=== PATIENT | male | born 1990 | race Caucasian/White ===

== ENCOUNTER 2016-08-14 16:20 | Emergency (ER) | payer OTHER ==
[~2016-08-14] VITALS: Ht 172.7 cm; Wt 91.4 kg
[2016-08-14 16:43] VITALS: TEMP 36.7; Ht 172.7 cm; Wt 91.4 kg
[2016-08-14 17:31] LABS: BASO % 0.4 %; BASO ABS # 0.04 K/uL (0-0.2); COMPLETE YES; EOS % 0.9 %; HEMATOCRIT 46.4 % (42-52); IG% 0.2 %; LYMPH % 28.2 %; LYMPH ABS # 2.63 K/uL (1.2-3.4); MEAN CORPUSCULAR HEMOGLOBIN 31.2 pg (25-34); MEAN CORPUSCULAR HGB CONC 34.3 g/dl (32-36); MEAN PLATELET VOLUME 10.1 fL (7.4-10.4); MONO % 9.9 %; NEUT % 60.4 %; PLATELET COUNT 238 K/uL (130-400); WHITE BLOOD COUNT 9.34 K/uL (4.8-10.8)
[2016-08-14 17:43] LABS: POINT OF CARE TROPONIN I < 0.030 ng/ml (0-0.045)
[2016-08-14 17:48] LABS: BUN/CREATININE RATIO 6.3 (10-20); CALCIUM 8.9 mg/dl (8.5-10.1); CREATININE 1.4 mg/dl (0.60-1.40); POTASSIUM 3.3 mmol/L (3.5-5.1)
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
[2016-08-14] MEDS ORDERED: POTASSIUM CHLORIDE 10 MEQ TABCR PO STA (18:13)
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
[2016-08-14 19:23] VITALS: BP 124/75; PULSE 70; O2SAT 98
== END 2016-08-14 19:24 | disposition home or self-care (01) ==
LOC: C.EDB 16:23 → C.EDD 19:24
DX: S09.90XA Unspecified injury of head, initial encounter (principal); E87.6 Hypokalemia; R79.89 Other specified abnormal findings of blood chemistry; W16.122A Fall into natural body of water striking bottom causing other injury, initial encounter; W22.8XXA Striking against or struck by other objects, initial encounter; Z87.828 Personal history of other (healed) physical injury and trauma; Z83.3 Family history of diabetes mellitus

== ENCOUNTER 2016-12-06 17:26 | Emergency (ER) | payer OTHER ==
[~2016-12-06] VITALS: Ht 172.7 cm; Wt 91.9 kg
[2016-12-06 17:34] VITALS: TEMP 36.6; Ht 172.7 cm; Wt 91.9 kg
[2016-12-06] MEDS ORDERED: SODIUM CHLORIDE 0.9% 1000ML 1,000 ML IV STA (17:42)
--- NOTE | 2016-12-06 17:59 | DIAGNOSTIC IMAGING REPORT ---
CHEST ONE VIEW PORTABLE CLINICAL HISTORY: ABDOMINAL PAIN/GI pain COMPARISON STUDY: 08/14/2016 FINDINGS: Moderate cardiomegaly. Diaphragms smooth. Lungs are clear. IMPRESSION: Moderate cardiac megaly. Otherwise negative study. The above report was generated using voice recognition software. It may contain grammatical, syntax or spelling errors. Electronically signed by: Nima Nieves M.D. 12/06/2016 5:57 PM Dictated Date/Time: 12/06/2016 5:57 PM
[2016-12-06 18:09] LABS: BASO % 0.5 %; BASO ABS # 0.04 K/uL (0-0.2); COMPLETE YES; EOS % 1.7 %; HEMATOCRIT 45.3 % (42-52); IG% 0.1 %; LYMPH % 32.4 %; LYMPH ABS # 2.64 K/uL (1.2-3.4); MEAN CELL VOLUME 92.3 fL (80-100); MEAN CORPUSCULAR HGB CONC 35.8 g/dl (32-36); MEAN PLATELET VOLUME 10.2 fL (7.4-10.4); MONO % 10.8 %; NEUT % 54.5 %; PLATELET COUNT 224 K/uL (130-400); RED BLOOD COUNT 4.91 M/uL (4.7-6.1); WHITE BLOOD COUNT 8.14 K/uL (4.8-10.8)
--- NOTE | 2016-12-06 18:19 | DIAGNOSTIC IMAGING REPORT ---
ABD/PELVIS NO IV OR ORAL CONT CT DOSE: 525.15 mGy.cm HISTORY: Pain rt sided flank/abd pain TECHNIQUE: Multiaxial CT images of the abdomen and pelvis were performed without contrast. A dose lowering technique was utilized adhering to the principles of ALARA. COMPARISON STUDY: None. FINDINGS: The lung bases are clear. The unenhanced liver, spleen, gallbladder, pancreas, kidneys, and adrenal glands are within normal limits. No bowel wall thickening or obstruction. The pelvic organs are unremarkable. No suspicious lytic or blastic osseous lesions. IMPRESSION: No significant abnormality identified within the abdomen or pelvis. Normal appendix The above report was generated using voice recognition software. It may contain grammatical, syntax or spelling errors. Electronically signed by: Nima Nieves M.D. 12/06/2016 6:18 PM Dictated Date/Time: 12/06/2016 6:15 PM
[2016-12-06 18:25] LABS: URINE APPEARANCE CLEAR (CLEAR); URINE BILIRUBIN NEG (NEG); URINE COLOR YELLOW; URINE EPITHELIAL CELL AUTO 0-5 /lpf (0-5); URINE NITRITE NEG (NEG); URINE SPECIFIC GRAVITY 1.028 (1.000-1.030); UROBILINOGEN NEG (NEG); ZZUR CULT IF INDIC CLEAN CATCH NO
[2016-12-06 18:26] LABS: ALT/SGPT 33 U/L (12-78); BLOOD UREA NITROGEN 16 mg/dl (7-18); CALCIUM 8.8 mg/dl (8.5-10.1); CARBON DIOXIDE 25 mmol/L (21-32); CHLORIDE 105 mmol/L (98-107); CREATININE 1.49 mg/dl (0.60-1.40); GLUCOSE 94 mg/dl (70-99); POTASSIUM 3.8 mmol/L (3.5-5.1); SODIUM 137 mmol/L (136-145)
[2016-12-06 18:28] LABS: ALKALINE PHOSPHATASE 85 U/L (45-117); AST/SGOT 23 U/L (15-37); MANUAL MICROSCOPIC REQUIRED? NO; REVIEW REQ? NO
[2016-12-06] MEDS ORDERED: KETOROLAC TROMETHAMINE 30 MG/ML VIAL IV STA (18:40)
--- NOTE | 2016-12-06 19:34 | DIAGNOSTIC IMAGING REPORT ---
GALLBLADDER-ABD LIMITED CLINICAL HISTORY: ABDOMINAL PAIN/GI nausea TECHNIQUE: Ultrasound COMPARISON STUDY: None FINDINGS: Normal gallbladder. Common bile duct 4 mm. Liver is uniform. Pancreas is poorly seen due to overlying bowel content. Right kidney is negative for hydronephrosis. IMPRESSION: Negative study The above report was generated using voice recognition software. It may contain grammatical, syntax or spelling errors. Electronically signed by: Nima Nieves M.D. 12/06/2016 7:33 PM Dictated Date/Time: 12/06/2016 7:32 PM
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
[2016-12-06 20:03] VITALS: BP 119/85; PULSE 59; O2SAT 98
== END 2016-12-06 20:04 | disposition home or self-care (01) ==
LOC: C.EDB 17:27 → C.EDC 20:04
DX: R10.9 Unspecified abdominal pain (principal); F17.200 Nicotine dependence, unspecified, uncomplicated; Z83.79 Family history of other diseases of the digestive system

== ENCOUNTER 2016-12-31 01:18 | Emergency (ER) | payer OTHER ==
[~2016-12-31] VITALS: Ht 175.3 cm; Wt 90.9 kg
[2016-12-31 01:22] VITALS: Ht 175.3 cm; Wt 90.9 kg
[2016-12-31] MEDS ORDERED: ONDANSETRON INJ 2 MG/ML 2 ML VIAL IV STA (01:44)
[2016-12-31 01:55] VITALS: O2SAT 95
[2016-12-31 02:03] LABS: BASO % 0.3 %; BASO ABS # 0.02 K/uL (0-0.2); COMPLETE YES; HEMATOCRIT 43.3 % (42-52); LYMPH % 31.5 %; LYMPH ABS # 2.03 K/uL (1.2-3.4); MEAN CELL VOLUME 91.5 fL (80-100); MEAN CORPUSCULAR HEMOGLOBIN 32.8 pg (25-34); MEAN CORPUSCULAR HGB CONC 35.8 g/dl (32-36); MEAN PLATELET VOLUME 10.1 fL (7.4-10.4); MONO % 9.9 %; NEUT % 56.3 %; PLATELET COUNT 219 K/uL (130-400); RED BLOOD COUNT 4.73 M/uL (4.7-6.1); WHITE BLOOD COUNT 6.45 K/uL (4.8-10.8)
[2016-12-31 02:25] LABS: ALT/SGPT 39 U/L (12-78); AST/SGOT 22 U/L (15-37); BLOOD UREA NITROGEN 18 mg/dl (7-18); BUN/CREATININE RATIO 12.4 (10-20); CALCIUM 8.7 mg/dl (8.5-10.1); CARBON DIOXIDE 26 mmol/L (21-32); CHLORIDE 104 mmol/L (98-107); CREATININE 1.45 mg/dl (0.60-1.40); GLUCOSE 120 mg/dl (70-99); POTASSIUM 3.6 mmol/L (3.5-5.1); SODIUM 140 mmol/L (136-145)
[2016-12-31 02:36] LABS: ALKALINE PHOSPHATASE 89 U/L (45-117)
[2016-12-31 02:40] VITALS: BP 130/70; PULSE 65; TEMP 36.5; O2SAT 95
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
--- NOTE | 2016-12-31 06:29 | DIAGNOSTIC IMAGING REPORT ---
CHEST ONE VIEW PORTABLE CLINICAL HISTORY: Atypical chest pain COMPARISON STUDY: 12/06/2016 FINDINGS: The cardiac and mediastinal contours are normal. There is no evidence of focal pulmonary consolidation. There is no evidence of failure. No pleural effusions are visualized.[ IMPRESSION: No active disease in the chest. Electronically signed by: Cedric Ken M.D. 12/31/2016 6:27 AM Dictated Date/Time: 12/31/2016 6:27 AM
== END 2016-12-31 03:03 | disposition home or self-care (01) ==
LOC: C.EDB 01:19 → C.EDA 03:03
DX: E86.0 Dehydration (principal); R11.10 Vomiting, unspecified; R10.13 Epigastric pain; Z87.828 Personal history of other (healed) physical injury and trauma; Z83.79 Family history of other diseases of the digestive system

== ENCOUNTER 2017-01-03 11:05 | Emergency (ER) | payer OTHER ==
[~2017-01-03] VITALS: Ht 172.7 cm; Wt 88.6 kg
[2017-01-03 11:10] VITALS: TEMP 36.9; Ht 172.7 cm; Wt 88.6 kg
[2017-01-03] MEDS ORDERED: ONDANSETRON INJ 2 MG/ML 2 ML VIAL IV STA (11:47)
[2017-01-03 12:25] LABS: BASO % 0.4 %; BASO ABS # 0.03 K/uL (0-0.2); COMPLETE YES; EOS % 0.1 %; HEMATOCRIT 42.8 % (42-52); IG% 0.1 %; LYMPH % 14.8 %; LYMPH ABS # 1.19 K/uL (1.2-3.4); MEAN CORPUSCULAR HEMOGLOBIN 34.1 pg (25-34); MEAN CORPUSCULAR HGB CONC 36.7 g/dl (32-36); MONO % 6.4 %; NEUT % 78.2 %; PLATELET COUNT 215 K/uL (130-400); WHITE BLOOD COUNT 8.02 K/uL (4.8-10.8)
[2017-01-03 12:32] LABS: BUN/CREATININE RATIO 12.9 (10-20); CALCIUM 8.8 mg/dl (8.5-10.1); CREATININE 1.45 mg/dl (0.60-1.40); MAGNESIUM 2.4 mg/dl (1.8-2.4)
[2017-01-03 12:33] LABS: MANUAL MICROSCOPIC REQUIRED? NO; URINE APPEARANCE CLEAR (CLEAR); URINE BILIRUBIN NEG (NEG); URINE COLOR YELLOW; URINE NITRITE NEG (NEG); URINE PH 6.5 (4.5-7.5); UROBILINOGEN POS (NEG)
[2017-01-03 12:36] LABS: REVIEW REQ? NO
[2017-01-03 12:38] LABS: PARTIAL THROMBOPLASTIN RATIO 1.1; PROTHROMBIN TIME (PATIENT) 10.4 SECONDS (9.0-12.0)
[2017-01-03 12:43] LABS: THYROID STIMULATING HORMONE 2.02 uIu/ml (0.300-4.500)
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
[2017-01-03 14:50] VITALS: BP 118/52; PULSE 90; O2SAT 98
== END 2017-01-03 14:34 | disposition home or self-care (01) ==
LOC: C.EDB 11:07 → C.EDC 14:34
DX: R63.0 Anorexia (principal); E86.0 Dehydration; Z83.79 Family history of other diseases of the digestive system

== ENCOUNTER 2017-01-06 11:37 | Emergency (ER) | payer OTHER ==
[~2017-01-06] VITALS: Ht 172.7 cm; Wt 88.0 kg
[2017-01-06 11:43] VITALS: TEMP 36.7; Ht 172.7 cm; Wt 88.0 kg
[2017-01-06 12:23] LABS: URINE APPEARANCE CLEAR (CLEAR); URINE BILIRUBIN NEG (NEG); URINE COLOR DK YELLOW; URINE NITRITE NEG (NEG); URINE PH 5.5 (4.5-7.5); UROBILINOGEN NEG (NEG)
[2017-01-06 12:25] LABS: MANUAL MICROSCOPIC REQUIRED? NO; REVIEW REQ? NO
[2017-01-06 12:32] LABS: BENZODIAZEPINE, URINE NEG (NEG); COCAINE,URINE NEG (NEG); PHENCYCLIDINE, URINE NEG (NEG)
--- NOTE | 2017-01-06 12:33 | DIAGNOSTIC IMAGING REPORT ---
CHEST ONE VIEW PORTABLE CLINICAL HISTORY: Mood Disorder mental status change COMPARISON STUDY: 12/31/2016 FINDINGS: The bones soft tissues and hemidiaphragms are normal. The cardiomediastinal silhouette is normal. The lungs are clear. The pulmonary vasculature is normal. IMPRESSION: Negative chest. The above report was generated using voice recognition software. It may contain grammatical, syntax or spelling errors. Electronically signed by: Nima Nieves M.D. 01/06/2017 12:32 PM Dictated Date/Time: 01/06/2017 12:32 PM
[2017-01-06 12:35] LABS: BASO % 0.4 %; BASO ABS # 0.03 K/uL (0-0.2); COMPLETE YES; EOS % 0.2 %; HEMATOCRIT 45.5 % (42-52); IG% 0.2 %; LYMPH % 20.2 %; LYMPH ABS # 1.69 K/uL (1.2-3.4); MEAN CORPUSCULAR HEMOGLOBIN 33.9 pg (25-34); MEAN CORPUSCULAR HGB CONC 36.5 g/dl (32-36); MEAN PLATELET VOLUME 9.9 fL (7.4-10.4); PLATELET COUNT 257 K/uL (130-400); RED BLOOD COUNT 4.89 M/uL (4.7-6.1); WHITE BLOOD COUNT 8.38 K/uL (4.8-10.8)
[2017-01-06 12:51] LABS: BLOOD UREA NITROGEN 12 mg/dl (7-18); BUN/CREATININE RATIO 7.7 (10-20); CALCIUM 9.3 mg/dl (8.5-10.1); CARBON DIOXIDE 24 mmol/L (21-32); CHLORIDE 104 mmol/L (98-107); CREATININE 1.51 mg/dl (0.60-1.40); GLUCOSE 81 mg/dl (70-99); POTASSIUM 3.7 mmol/L (3.5-5.1); SODIUM 138 mmol/L (136-145)
[2017-01-06 13:02] LABS: ALKALINE PHOSPHATASE 86 U/L (45-117); ALT/SGPT 27 U/L (12-78); AST/SGOT 15 U/L (15-37)
[2017-01-06 13:20] VITALS: BP 137/74; PULSE 68; O2SAT 96
[2017-01-06] MEDS ORDERED: HYDR25CA PO (13:38)
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
== END 2017-01-06 13:46 | disposition home or self-care (01) ==
LOC: C.EDB 11:38 → C.EDA 13:46
DX: F32.9 Major depressive disorder, single episode, unspecified (principal); Z87.828 Personal history of other (healed) physical injury and trauma; Z83.79 Family history of other diseases of the digestive system